=== PATIENT | female | born 1940 | race Caucasian/White ===

== ENCOUNTER 2017-06-21 09:03 | Emergency (ER) | payer MEDICARE, BC ==
[~2017-06-21] VITALS: Ht 157.5 cm; Wt 77.0 kg
[2017-06-21] MEDS ORDERED: ZOCOR20 M1 PO (09:42)
[2017-06-21] MEDS ORDERED: ATENOLOL50 MG PO (09:43)
[2017-06-21] MEDS ORDERED: TRICOR145 MG PO (09:43)
[2017-06-21] MEDS ORDERED: LOSARTAN POT50 MG PO (09:44)
[2017-06-21] MEDS ORDERED: ISOSORB MONO30 MG PO (09:44)
[2017-06-21] MEDS ORDERED: ASPIRIN 8181 MG PO (09:45)
[2017-06-21] MEDS ORDERED: EYE VITAMINS PO (09:45)
[2017-06-21] MEDS ORDERED: CENTRU3 PO (09:48)
[2017-06-21] MEDS ORDERED: VITAMIN B-12500 MCG PO (09:49)
[2017-06-21] MEDS ORDERED: D3400 UNIT PO (09:50)
[2017-06-21] MEDS ORDERED: FISH OIL1200 M1 PO (09:50)
[2017-06-21] MEDS ORDERED: FOLIC ACID400 MC1 PO (09:50)
[2017-06-21] MEDS ORDERED: COQ10200 MG PO (09:52)
[2017-06-21] MEDS ORDERED: PRILOSEC20 MG PO (09:53)
[2017-06-21] MEDS ORDERED: NITROSTAT0.4 MG SL (09:53)
[2017-06-21] MEDS ORDERED: FUROSEMIDE20 MG PO (09:54)
[2017-06-21 10:00] LABS: INFLUENZA A NONE DETECTED (NONE DETECT); INFLUENZA B NONE DETECTED (NONE DETECT)
[2017-06-21 10:58] LABS: HEMATOCRIT 45.1 % (37.0-47.0); HEMOGLOBIN 14.5 g/dl (12.0-16.0); IMMATURE GRANULOCYTES 0.3 % (0.0-1.0); MEAN CELL VOLUME 85.9 fL CALC (80.0-100.0); MEAN CORPUSCULAR HGB 27.6 pG CALC (26.0-32.0); MEAN CORPUSCULAR HGB CONC 32.2 g/L CALC (32.0-36.0); NEUT# 5.87 thou/uL (2.00-7.15); RED BLOOD COUNT 5.25 mill/uL (4.20-5.60); RED CELL DISTRI WIDTH 13.3 % (11.5-15.5)
[2017-06-21 11:05] LABS: ALBUMIN 4.7 g/dL (3.2-5.0); ALKALINE PHOSPHATASE 63 u/l (38-126); ANION GAP 17 (6-22 (CALC)); BILIRUBIN, TOTAL 0.8 mg/dL (0.0-1.4); BUN 19 mg/dL (8-23); BUN/CREATININE RATIO 21 (12-20 (CALC)); CALCIUM 9.9 mg/dL (8.4-10.2); CARBON DIOXIDE 27 mmol/l (22-30); CHLORIDE 106 mmol/l (95-108); CREATININE 0.9 mg/dL (0.5-1.0); GFR > 60 ML/MIN (>=60 (CALC)); GFR FOR AFR.AMER. > 60 ML/MIN (>=60 (CALC)); GLUCOSE 110 mg/dL (82-115); POTASSIUM 4.5 mmol/l (3.5-5.1); SGOT/AST 26 u/l (9-36); SGPT/ALT 33 u/l (11-66); SODIUM 145 mmol/l (137-146); TOTAL PROTEIN 7.2 g/dL (6.3-8.2)
[2017-06-21] MEDS ORDERED: ZPAK PO (11:43)
[2017-06-21] MEDS ORDERED: ROBITUSSIN AC10 ML PO (11:43)
[2017-06-21 11:52] VITALS: BP 123/60
== END 2017-06-21 12:16 | disposition home or self-care (01) ==
LOC: ED 09:03
PROVIDERS: Emergency Medicine
DX: J20.9 Acute bronchitis, unspecified (principal); I50.9 Heart failure, unspecified